=== PATIENT | male | born 1955 | race Caucasian/White ===

== ENCOUNTER 2017-01-04 15:46 | Observation (INO) | payer OTHER ==
[2017-01-04] VITALS (8 sets, daily range): BP systolic 105–141; BP diastolic 69–79; PULSE 61–68; RESP 18–20; TEMP 88.2–98.8; O2SAT 95–98
[~2017-01-04] VITALS: Ht 193 cm; Wt 90.0 kg
[~2017-01-04 15:46] MED LIST: ASPI325T PO; METO25 PO; [UNRECOGNIZED DRUG - CODE]
--- NOTE | 2017-01-04 17:20 | PD ---
HPI Chief Complaint: Cardiac Complaint Time Seen by Provider: 17:20 Travel History International Travel<30 days: No Contact w/Intl Traveler<30days: No Traveled to known affect area: No History of Present Illness HPI 61 year old male presents to the emergency department for evaluation of palpitations that started around noon today, but have resolved. The patient states he has a history of atrial fibrillation. He states that he does get atrial fibrillation with similar symptoms. This occurs approximately once monthly. His student support advisor is Dr. Fletcher. Dr. Fletcher has told him to take an extra metoprolol when his symptoms occur. He did take an additional metoprolol and the symptoms resolved. Patient states that during this episode, he was having intermittent blurry vision. He states it was looking through a steamed glass, but then the blurry vision would resolve. He denies any headache. No current blurry vision. He states that that is coming to the emergency department for evaluation, to be extra careful. The patient states that he has no symptoms at this point. Patient had no chest pain during symptoms and no chest pain now. He has no abdominal pain. No nausea, vomiting , diarrhea. He states he takes metoprolol and aspirin daily. He denies any other medical problems. Patient states he feels well at this time. PFSH Past Medical History Arthritis: No Asthma: No Atrial Fibrillation: Yes Autoimmune Disease: No Blood Disorders: No Anxiety: No Depression: No Heart Rhythm Problems: Yes Cancer: No Cardiovascular Problems: Yes (AFIB) High Cholesterol: No Chemotherapy: No Chest Pain: No Congestive Heart Failure: No COPD: No Cerebrovascular Accident: No Diabetes: No Diminished Hearing: No Endocrine: No GERD: Yes Glaucoma: No Genitourinary: No Headaches: No Hepatitis: No Hiatal Hernia: No Hypertension: Yes Immune Disorder: No Kidney Stones: No Musculoskeletal: Yes Neurologic: No Psychiatric: No Reproductive: No Respiratory: No Immunizations Current: Yes Myocardial Infarction: No Radiation Therapy: No Renal Failure: No Seizures: No Sickle Cell Disease: No Sleep Apnea: No Thyroid Disease: No Ulcer: No Tetanus Vaccination: Unknown Influenza Vaccination: Yes Past Surgical History Abdominal Surgery: No AICD: No Arteriovenous Shunt: No Cardiac Surgery: No Ear Surgery: No Endocrine Surgery: No Eye Surgery: No Genitourinary Surgery: No Gynecologic Surgery: No Insulin Pump: No Joint Replacement: No Oral Surgery: No Pacemaker: No Thoracic Surgery: No Social History Alcohol Use: No Tobacco Use: No Substance Use: No Allergies-Medications (Allergen,Severity, Reaction): Coded Allergies: No Known Allergies (Verified , 01/04/17) Reported Meds & Prescriptions Reported Meds & Active Scripts Active Knee Brace (Elastic Bandages & Supports) Medium Mis Units Metoprolol Tartrate 25 mg (Metoprolol Tartrate) 25 Mg Tab 25 Mg PO BID Reported Aspirin 325 mg (Aspirin) 325 Mg Tab 325 Mg PO DAILY Review of Systems Except as stated in HPI: all other systems reviewed are Neg Physical Exam Narrative GENERAL: Well-nourished, well-developed male patient, ambulatory. Afebrile. SKIN: Focused skin assessment warm/dry. HEAD: Normocephalic. Atraumatic. EYES: No scleral icterus. No injection or drainage. NECK: Supple, trachea midline. No JVD or lymphadenopathy. CARDIOVASCULAR: Regular rate and rhythm without murmurs, gallops, or rubs. Bilateral radial and pedal pulses 2+. RESPIRATORY: Breath sounds equal bilaterally. No accessory muscle use. Lungs sounds are clear to auscultation. GASTROINTESTINAL: Abdomen soft, non-tender, nondistended. MUSCULOSKELETAL: No cyanosis, or edema. BACK: Nontender without obvious deformity. No CVA tenderness. Data Data Last Documented VS Vital Signs Date Time Temp Pulse Resp B/P Pulse Ox O2 Delivery O2 Flow Rate FiO2 01/04/17 18:49 97.6 01/04/17 17:27 98 Room Air 01/04/17 17:14 62 18 01/04/17 17:14 136/73 Orders Electrocardiogram (01/04/17 ) Basic Metabolic Panel (Bmp) (01/04/17 17:18) Ckmb (Isoenzyme) Profile (01/04/17 17:18) Complete Blood Count With Diff (01/04/17 17:18) Magnesium (Mg) (01/04/17 17:18) Troponin I (01/04/17 17:18) Ecg Monitoring (01/04/17 17:18) Bilateral Bp Monitoring (01/04/17 17:18) Iv Access Insert/Monitor (01/04/17 17:18) Oximetry (01/04/17 17:18) Oxygen Administration (01/04/17 17:18) Sodium Chloride 0.9% Flush (Ns Flush) (01/04/17 17:30) CKMB (01/04/17 17:15) CKMB% (01/04/17 17:15) Ct Brain W/O Iv Contrast(Rout) (01/04/17 ) Admit Order (Ed Use Only) (01/04/17 19:19) Labs Laboratory Tests Test 01/04/17 17:15 White Blood Count 7.6 TH/MM3 Red Blood Count 4.74 MIL/MM3 Hemoglobin 13.5 GM/DL Hematocrit 40.9 % Mean Corpuscular Volume 86.4 FL Mean Corpuscular Hemoglobin 28.5 PG Mean Corpuscular Hemoglobin 33.0 % Concent Red Cell Distribution Width 14.4 % Platelet Count 276 TH/MM3 Mean Platelet Volume 7.4 FL Neutrophils (%) (Auto) 75.9 % Lymphocytes (%) (Auto) 16.4 % Monocytes (%) (Auto) 6.1 % Eosinophils (%) (Auto) 1.1 % Basophils (%) (Auto) 0.5 % Neutrophils # (Auto) 5.8 TH/MM3 Lymphocytes # (Auto) 1.2 TH/MM3 Monocytes # (Auto) 0.5 TH/MM3 Eosinophils # (Auto) 0.1 TH/MM3 Basophils # (Auto) 0.0 TH/MM3 CBC Comment DIFF FINAL Differential Comment Sodium Level 141 MEQ/L Potassium Level 4.3 MEQ/L Chloride Level 106 MEQ/L Carbon Dioxide Level 29.3 MEQ/L Anion Gap 6 MEQ/L Blood Urea Nitrogen 19 MG/DL Creatinine 1.12 MG/DL Estimat Glomerular Filtration 66 ML/MIN Rate Random Glucose 116 MG/DL Calcium Level 9.3 MG/DL Magnesium Level 2.2 MG/DL Total Creatine Kinase 234 U/L Creatine Kinase MB 3.0 NG/ML Troponin I LESS THAN 0.02 NG/ML MDM Medical Decision Making Medical Screen Exam Complete: Yes Emergency Medical Condition: Yes Medical Record Reviewed: Yes Interpretation(s) CT brain - CONCLUSION: No acute disease. Differential Diagnosis TIA versus CVA versus Atrial fibrillation versus palpitations versus ACS Narrative Course 61-year-old male presents to the emergency department for evaluation of palpitations that occurred at noon, but have currently resolved. He took an extra metoprolol as directed by his student support advisor. Patient reports symptoms approximately monthly since September. The patient denies any complaints at this time and states he feels well. EKG shows sinus rhythm, heart rate 76. He does have inverted T waves in V2 and V3. EKG is unchanged when compared to previous EKG. No acute ST changes. CBC, BMP, magnesium, CK, troponin are ordered and pending. CT of the brain is ordered and pending per CBC shows no acute abnormality. BMP shows no acute abnormality. CK is 234. Troponin is less than 0.02. Magnesium 2.2. CT of the brain shows no acute disease. I consulted my attending physician, Dr. Schultz, who also examined the patient. She like the patient to be admitted for 23 hour observation for possible TIA. Dr. Preciado accepted admission. I was later notified that the patient would need to be admitted to the residents due to being seen in the [facility]. Dr. Romero accepted admission. Diagnosis Primary Impression: TIA (transient ischemic attack) Qualified Code: G45.9 - Transient cerebral ischemia, unspecified type Additional Impression: Atrial fibrillation Qualified Code: I48.0 - Paroxysmal atrial fibrillation Admitting Information Admitting Physician Requests: Observation Kasia Mishra Jan 04, 2017 17:20
[2017-01-04] MEDS ORDERED: SODIUM CHLORIDE 0.9% FLUSH 10 ML FLUSH IVF PRN (17:30)
[2017-01-04 17:35] LABS: AUTOMATED NEUTROPHIL # 5.8 TH/MM3 (1.8-7.7); BASOPHIL % 0.5 % (0.0-2.0); EOSINOPHIL # 0.1 TH/MM3 (0-0.4); EOSINOPHIL % 1.1 % (0.0-4.0); HEMATOCRIT 40.9 % (39.0-51.0); HEMO FLAGS DIFF FINAL; LYMPH % 16.4 % (9.0-44.0); LYMPHOCYTE # 1.2 TH/MM3 (1.0-4.8); MEAN CELL VOLUME 86.4 FL (80.0-100.0); MEAN CORPUSCULAR HEMOGLOBIN 28.5 PG (27.0-34.0); MONO % 6.1 % (0.0-8.0); NEUT % 75.9 % (16.0-70.0); PLATELET COUNT 276 TH/MM3 (150-450); RED BLOOD COUNT 4.74 MIL/MM3 (4.50-5.90); RED CELL DISTRIBUTION WIDTH 14.4 % (11.6-17.2); WHITE BLOOD COUNT 7.6 TH/MM3 (4.0-11.0)
[2017-01-04 17:49] LABS: ANION GAP 6 MEQ/L (5-15); BICARBONATE 29.3 MEQ/L (21.0-32.0); BLOOD UREA NITROGEN 19 MG/DL (7-18); CHLORIDE 106 MEQ/L (98-107); GLOMERULAR FILTRATION RATE 66 ML/MIN (>89); MAGNESIUM 2.2 MG/DL (1.5-2.5); POTASSIUM 4.3 MEQ/L (3.5-5.1); SODIUM (NA) 141 MEQ/L (136-145)
[2017-01-04 17:54] LABS: CREATINE KINASE 234 U/L (39-308)
--- NOTE | 2017-01-04 19:14 | RADRPT ---
EXAM DATE/TIME: 01/04/2017 19:02 [facility] COMPARISON: No previous studies available for comparison. INDICATIONS : Blurry vision with a-fib. RADIATION DOSE: 40.04 CTDIvol (mGy) MEDICAL HISTORY : Cardiovascular disease. Hypertension - Patient denies. SURGICAL HISTORY : None. ENCOUNTER: Initial ACUITY: 1 day PAIN SCALE: 0/10 LOCATION: cranial TECHNIQUE: Multiple contiguous axial images were obtained of the head. Using automated exposure control and adj ustment of the mA and/or kV according to patient size, radiation dose was kept as low as reasonably a chievable to obtain optimal diagnostic quality images. FINDINGS: CEREBRUM: The ventricles are normal for age. No evidence of midline shift, mass lesion, hemorrhage or acute in farction. No extra-axial fluid collections are seen. POSTERIOR FOSSA: The cerebellum and brainstem are intact. The 4th ventricle is midline. The cerebellopontine angle i s unremarkable. EXTRACRANIAL: The visualized portion of the orbits is intact. SKULL: The calvaria is intact. No evidence of skull fracture. CONCLUSION: No acute disease. Braydon Montes MD on January 04, 2017 at 19:12 Board Certified Radiologist. This report was verified electronically.
--- NOTE | 2017-01-04 19:24 | PD ---
Physical Exam Date Seen by Provider: Jan 04, 2017 Time Seen by Provider: 19:21 Narrative 61-year-old male came to the emergency room with history of paroxysmal atrial fibrillation which as per the patient he has had it for past 10 years. 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 However associated with the palpitations he also started to get blurry vision. The blurry vision lasted for few minutes. The palpitations started to subside considerably and the blurry vision started to subside as well. However he was concerned from stroke perspective and wanted to come to the emergency room and be checked out. Patient was seen by the nurse practitioner and I am supervising her. Currently patient is in normal sinus rhythm. He is only on one baby aspirin every day. Blood work that was ordered came back to be within normal limits. I spoke with the patient and expressed to him my concerns for possible TIA. He understood and a CAT scan was ordered. I also expressed to him the need to be admitted for observation because of the paroxysmal atrial fibrillation and the possibility of embolic event. Patient has understood and is willing to stay. Data Data Last Documented VS Vital Signs Date Time Temp Pulse Resp B/P Pulse Ox O2 Delivery O2 Flow Rate FiO2 01/04/17 18:49 97.6 01/04/17 17:27 98 Room Air 01/04/17 17:14 62 18 01/04/17 17:14 136/73 Orders Electrocardiogram (01/04/17 ) Basic Metabolic Panel (Bmp) (01/04/17 17:18) Ckmb (Isoenzyme) Profile (01/04/17 17:18) Complete Blood Count With Diff (01/04/17 17:18) Magnesium (Mg) (01/04/17 17:18) Troponin I (01/04/17 17:18) Ecg Monitoring (01/04/17 17:18) Bilateral Bp Monitoring (01/04/17 17:18) Iv Access Insert/Monitor (01/04/17 17:18) Oximetry (01/04/17 17:18) Oxygen Administration (01/04/17 17:18) Sodium Chloride 0.9% Flush (Ns Flush) (01/04/17 17:30) CKMB (01/04/17 17:15) CKMB% (01/04/17 17:15) Ct Brain W/O Iv Contrast(Rout) (01/04/17 ) Admit Order (Ed Use Only) (01/04/17 19:19) Labs Laboratory Tests Test 01/04/17 17:15 White Blood Count 7.6 TH/MM3 Red Blood Count 4.74 MIL/MM3 Hemoglobin 13.5 GM/DL Hematocrit 40.9 % Mean Corpuscular Volume 86.4 FL Mean Corpuscular Hemoglobin 28.5 PG Mean Corpuscular Hemoglobin 33.0 % Concent Red Cell Distribution Width 14.4 % Platelet Count 276 TH/MM3 Mean Platelet Volume 7.4 FL Neutrophils (%) (Auto) 75.9 % Lymphocytes (%) (Auto) 16.4 % Monocytes (%) (Auto) 6.1 % Eosinophils (%) (Auto) 1.1 % Basophils (%) (Auto) 0.5 % Neutrophils # (Auto) 5.8 TH/MM3 Lymphocytes # (Auto) 1.2 TH/MM3 Monocytes # (Auto) 0.5 TH/MM3 Eosinophils # (Auto) 0.1 TH/MM3 Basophils # (Auto) 0.0 TH/MM3 CBC Comment DIFF FINAL Differential Comment Sodium Level 141 MEQ/L Potassium Level 4.3 MEQ/L Chloride Level 106 MEQ/L Carbon Dioxide Level 29.3 MEQ/L Anion Gap 6 MEQ/L Blood Urea Nitrogen 19 MG/DL Creatinine 1.12 MG/DL Estimat Glomerular Filtration 66 ML/MIN Rate Random Glucose 116 MG/DL Hemoglobin A1c 6.1 % Calcium Level 9.3 MG/DL Magnesium Level 2.2 MG/DL Total Creatine Kinase 234 U/L Creatine Kinase MB 3.0 NG/ML Troponin I LESS THAN 0.02 NG/ML [facility] Medical Record Reviewed: Yes Supervised Visit with ANGELITA: Yes Diagnosis Primary Impression: TIA (transient ischemic attack) Qualified Code: G45.9 - Transient cerebral ischemia, unspecified type Additional Impression: Atrial fibrillation Qualified Code: I48.0 - Paroxysmal atrial fibrillation Scripts Apixaban (Eliquis)5 Mg Tab5 Mg PO BID #60 TAB Ref 0 Prov:Melvin Wyman MD R3 01/05/17 Atorvastatin (Lipitor)20 Mg Tab40 Mg PO HS #30 TAB Prov:Melvin Wyman MD R3 01/05/17 Chang Schultz MD Jan 04, 2017 19:24
[2017-01-04] MEDS ORDERED: SODIUM CHLORIDE 0.9% FLUSH 10 ML FLUSH IV FLUSH PRN (19:30)
[2017-01-04] MEDS ORDERED: NALOXONE HCL 0.4 MG/ML AMP IV PRN (19:30)
[2017-01-04] MEDS ORDERED: ACETAMINOPHEN 325 MG TAB PO PRN (20:00)
[2017-01-04] MEDS ORDERED: ENALAPRILAT 1.25 MG/ML VIAL IV PRN ×2 (20:00→22:00)
[2017-01-04] MEDS ORDERED: ONDANSETRON HCL 4 MG/2 ML VIAL IVP PRN (20:00)
[2017-01-04] MEDS ORDERED: MAGNESIUM HYDROXIDE SUSP 30 ML CUP PO PRN (20:00)
[2017-01-04] MEDS ORDERED: TEMAZEPAM 15 MG CAP PO PRN (20:00)
[2017-01-04] MEDS: ASPIRIN 325 MG TAB PO SCH (20:11)
--- NOTE | 2017-01-04 20:25 | RADRPT ---
EXAM DATE/TIME: 01/04/2017 19:44 [facility] COMPARISON: No previous studies available for comparison. INDICATIONS : Transient ischemic attack. MEDICAL HISTORY : Hypertension. Gastroesophageal reflux disease. Afib. Lower back pain. Anticoagulant therapy, Aspiri n. SURGICAL HISTORY : None. ENCOUNTER: Initial ACUITY: 1 day PAIN SCORE: 0/10 LOCATION: Bilateral neck PEAK SYSTOLIC VELOCITIES (cm/sec): ICA/CCA RATIO: Right: 0.9 Left: 0.9 ICA: Right: 78 Left: 88 CCA: Right: 89 Left: 97 ECA: Right: 74 Left: 67 VERTEBRAL: Right: 51 antegrade Left: 52 antegrade Elevated flow velocities and ICA/CCA ratios have been found to correlate with increased degrees of vessel stenosis, calculated as percentage of diameter relative to a normal segment of distal ICA/CCA FINDINGS: RIGHT CAROTID: No significant stenosis is visualized. The waveforms are within normal limits. LEFT CAROTID: No significant stenosis is visualized. The waveforms are within normal limits. VERTEBRAL ARTERIES: Antegrade flow is seen in both vertebral arteries. MISCELLANEOUS: None. CONCLUSION: No acute disease. Braydon Montes MD on January 04, 2017 at 20:23 Board Certified Radiologist. This report was verified electronically.
--- NOTE | 2017-01-04 20:27 | RADRPT ---
EXAM DATE/TIME: 01/04/2017 19:36 [facility] COMPARISON: No previous studies available for comparison. INDICATIONS : Cough. MEDICAL HISTORY : None. SURGICAL HISTORY : None. ENCOUNTER: Initial ACUITY: 1 day PAIN SCORE: 0/10 LOCATION: Bilateral chest FINDINGS: Discoid atelectasis is noted within the left lung base. The heart is normal. The pulmonary vascular pattern is normal. The right lung is clear. CONCLUSION: Discoid atelectasis within the left lung base. Braydon Montes MD on January 04, 2017 at 20:21 Board Certified Radiologist. This report was verified electronically.
--- NOTE | 2017-01-04 20:30 | HHI.HP ---
HPI Service Family Medicine Primary Care Physician No Primary Care Physician Admission Diagnosis TIA, atrial fibrillation Diagnoses: International Travel<30 Days: No Contact w/Intl Traveler<30days: No Known Affected Area: No History of Present Illness Patient is a 61yo male with a PMH significant for PAF. Presented to the ED due to onset of blurry vision. Patient has a history of PAF that use that occur 3-4x /yr but has increased to monthly since 09/2016. Episodes are typically treated by taking metoprolol 50mg at the time of the episode and then resting for the next 3-4hrs as the symptoms will then resolve spontaneously. However, this last episode occurred at 1330 today but was now associated with blurry vision which was new. The blurry vision would come and go with each episode lasting 15secs. Occurred 3-4times. No associated syncope or lightheadedness. Denies CP or SOB. Pt has otherwise been asymptomatic prior to this event. Review of Systems Other ROS negative x10 except per HPI. Past Family Social History Past Medical History Paroxysmal atrial fibrillation (2007) Bilateral knee osteoarthritis Past Surgical History Appendectomy (2014) Reported Medications Reported Meds & Active Scripts Active Knee Brace (Elastic Bandages & Supports) Medium Mis Units Metoprolol Tartrate 25 mg (Metoprolol Tartrate) 25 Mg Tab 25 Mg PO BID Reported Aspirin 325 mg (Aspirin) 325 Mg Tab 325 Mg PO DAILY Allergies: Coded Allergies: No Known Allergies (Verified , 01/04/17) Family History Father: from fall at age 87, atrial fibrillation Paternal aunt: atrial fibrillation Mother: from MVC at age 36 Social History Lives at home with Tobacco: none, 1 PPD x 40 years, quit 2014 Alcohol: none Illicit drug use: none Physical Exam Vital Signs Vital Signs Date Time Temp Pulse Resp B/P Pulse Ox O2 Delivery O2 Flow Rate FiO2 01/04/17 19:28 138/71 141/70 01/04/17 19:27 65 18 138/71 97 Room Air 01/04/17 18:49 97.6 01/04/17 17:27 98 Room Air 01/04/17 17:14 62 18 98 Room Air 01/04/17 17:14 68 18 136/73 98 Room Air Physical Exam GENERAL: This is a well-nourished, well-developed patient, in no apparent distress. SKIN: No rashes, ecchymoses or lesions. Cool and dry. EYES: Pupils equal round and reactive. Extraocular motions intact. No scleral icterus. No injection or drainage. ENT: Nose without bleeding, purulent drainage. Throat without erythema, tonsillar hypertrophy or exudate. Uvula midline. Airway patent. NECK: Trachea midline. No lymphadenopathy. Supple, nontender, no meningeal signs. CARDIOVASCULAR: Regular rate and rhythm without murmurs, gallops, or rubs. RESPIRATORY: Clear to auscultation. Breath sounds equal bilaterally. No wheezes , rales, or rhonchi. GASTROINTESTINAL: Abdomen soft, non-tender, nondistended. No hepato-splenomegaly , or palpable masses. No guarding. MUSCULOSKELETAL: Extremities without clubbing, cyanosis, or edema. No calf tenderness. NEUROLOGICAL: Awake and alert. Cranial nerves II through XII intact. dysdiadochokinesia and pronator drift negative. Motor and sensory grossly within normal limits. Five out of 5 muscle strength in all muscle groups. Normal speech. Laboratory Laboratory Tests Test 01/04/17 17:15 White Blood Count 7.6 Red Blood Count 4.74 Hemoglobin 13.5 Hematocrit 40.9 Mean Corpuscular Volume 86.4 Mean Corpuscular Hemoglobin 28.5 Mean Corpuscular Hemoglobin 33.0 Concent Red Cell Distribution Width 14.4 Platelet Count 276 Mean Platelet Volume 7.4 Neutrophils (%) (Auto) 75.9 Lymphocytes (%) (Auto) 16.4 Monocytes (%) (Auto) 6.1 Eosinophils (%) (Auto) 1.1 Basophils (%) (Auto) 0.5 Neutrophils # (Auto) 5.8 Lymphocytes # (Auto) 1.2 Monocytes # (Auto) 0.5 Eosinophils # (Auto) 0.1 Basophils # (Auto) 0.0 CBC Comment DIFF FINAL Differential Comment Sodium Level 141 Potassium Level 4.3 Chloride Level 106 Carbon Dioxide Level 29.3 Anion Gap 6 Blood Urea Nitrogen 19 Creatinine 1.12 Estimat Glomerular Filtration 66 Rate Random Glucose 116 Calcium Level 9.3 Magnesium Level 2.2 Total Creatine Kinase 234 Creatine Kinase MB 3.0 Troponin I LESS THAN 0.02 Result Diagram: 01/04/17 1715 01/04/17 1715 Imaging Last Impressions Head CT 01/04/17 0000 Signed Impressions: Service Date/Time: Wednesday, January 04, 2017 19:02 - CONCLUSION: No acute disease. Braydon Montes MD Carotid Artery Ultrasound 01/04/17 0000 Signed Impressions: Service Date/Time: Wednesday, January 04, 2017 19:44 - CONCLUSION: No acute disease. Braydon Montes MD Assessment and Plan Assessment and Plan Patient is a 61yo male with a PMH significant for PAF. Admitted for TIA evaluation. Code Status FULL Discussed Condition With Dr. Robledo Problem List: (1) TIA (transient ischemic attack) Status: Acute Plan: Symptoms of blurred vision that occurred 3-4 times with each episode lasting for 15secs. Associated with episode of PAF but this is atypical for patient. No other associated symptoms. Pt is at increased risk due to history of Afib however he has no other major comorbidities. No focal deficits on exam. -EKG and troponin negative x1. No indication to continue trending -[id number]: 2, oral anticoagulation recommended. * Will need to discuss options with patient tomorrow -neuro checks -Lipid panel and A1c ordered Imaging: * Head CT: negative * Carotid US: negative * MRI ordered * MRA ordered * CXR: negative Medications: * Aspirin 325mg daily * Atorvastatin 40mg daily (2) PAF (paroxysmal atrial fibrillation) Status: Acute Plan: EKG shows sinus rhythm with evidence of 1st degree AV block and non specific T wave inversions in anterior lateral leads. -Currently rate controlled -cardiac telemetry -echo ordered -continue home medication: metoprolol 25mg BID -would benefit from anticoagulation (3) Nutrition, metabolism, and development symptoms Status: Acute Plan: Diet: Heart Healthy Electrolytes: unremarkable Fluids: none DVT PPX: lovenox GI PPX: none indicated Problem Qualifiers (1) TIA (transient ischemic attack): Qualified Code: G45.9 - Transient cerebral ischemia, unspecified type Tiffanie Mayes MD R2 Jan 04, 2017 20:30
[2017-01-04] MEDS ORDERED: METO25TA3 PO (20:37)
[2017-01-04] MEDS ORDERED: ASPI325T PO (20:37)
[2017-01-04] MEDS: METOPROLOL TARTRATE 25 MG TAB PO SCH (21:00)
[2017-01-04] MEDS: SODIUM CHLORIDE 0.9% FLUSH 10 ML FLUSH IV FLUSH SCH (21:04)
[2017-01-04] MEDS ORDERED: ENOXAPARIN SODIUM 40 MG/0.4 ML SYRINGE SQ SCH (22:00)
[2017-01-04 22:27] LABS: HEMOGLOBIN A1a 1.1 %; HEMOGLOBIN A1b 1.7 %; HEMOGLOBIN Ao 84.4 %; HEMOGLOBIN LA1C 2.2 %; HEMOGLOBIN P3 4.1 %
--- NOTE | 2017-01-04 22:38 | RADRPT ---
EXAM DATE/TIME: 01/04/2017 21:37 [facility] COMPARISON: CT BRAIN W/O CONTRAST, January 04, 2017, 19:02. INDICATIONS : TIA. MEDICAL HISTORY : A-fib. SURGICAL HISTORY : Appendectomy. ENCOUNTER: Subsequent ACUITY: 1 day PAIN SCORE: 0/10 LOCATION: cranial Please note a normal MRA of the brain does not entirely exclude the possibility of a small aneurysm, nor the possibility of distal intracranial vessel disease. TECHNIQUE: 3D time of flight MRA was performed. Source images, multiplanar STS MIP, and 3D volume MIP reconstru ctions were reviewed. FINDINGS: There is excellent visualization of the major intracranial arteries out to the second-order branch ve ssels. There is no evidence for aneurysm, vessel truncation or stenosis, and no evidence for vascula r malformation. CONCLUSION: No acute disease. Braydon Montes MD on January 04, 2017 at 22:36 Board Certified Radiologist. This report was verified electronically.
--- NOTE | 2017-01-04 22:41 | RADRPT ---
EXAM DATE/TIME: 01/04/2017 21:37 [facility] COMPARISON: No previous studies available for comparison. INDICATIONS : TIA. MEDICAL HISTORY : A-fib. SURGICAL HISTORY : Appendectomy. ENCOUNTER: Subsequent ACUITY: 1 day PAIN SCORE: 0/10 LOCATION: cranial TECHNIQUE: Multiplanar, multisequence MRI of the brain was performed without contrast. FINDINGS: CEREBRUM: The ventricles are normal for age. No evidence of midline shift, mass lesion, hemorrhage or acute in farction. No extraaxial fluid collections are seen. The pituitary gland and suprasellar cistern are normal in configuration. WHITE MATTER: No significant signal abnormalities are seen in the white matter. POSTERIOR FOSSA: The cerebellum and brainstem are intact. The 4th ventricle is midline. The cerebellopontine angle is unremarkable. The cerebellar tonsils are normal in position. DIFFUSION IMAGING: No focal areas of restricted diffusion are seen. No evidence of acute infarction. EXTRACRANIAL: The visualized portions of the orbits and paranasal sinuses are unremarkable. CONCLUSION: No acute disease. Braydon Montes MD on January 04, 2017 at 22:38 Board Certified Radiologist. This report was verified electronically.
[2017-01-05 04:12] VITALS: BP 100/54; PULSE 53; RESP 20; TEMP 97.6; O2SAT 96
[2017-01-05 06:39] LABS: ANION GAP 8 MEQ/L (5-15); BICARBONATE 26.3 MEQ/L (21.0-32.0); BLOOD UREA NITROGEN 19 MG/DL (7-18); CHLORIDE 108 MEQ/L (98-107); GLOMERULAR FILTRATION RATE 80 ML/MIN (>89); POTASSIUM 3.8 MEQ/L (3.5-5.1); SODIUM (NA) 142 MEQ/L (136-145)
[2017-01-05 06:41] LABS: HDL CHOLESTEROL 37.1 MG/DL (40.0-60.0); LDL CHOLESTEROL 120 MG/DL (0-99)
[2017-01-05 06:50] LABS: AUTOMATED NEUTROPHIL # 4.7 TH/MM3 (1.8-7.7); BASOPHIL % 0.3 % (0.0-2.0); EOSINOPHIL # 0.2 TH/MM3 (0-0.4); EOSINOPHIL % 2.1 % (0.0-4.0); HEMATOCRIT 37.2 % (39.0-51.0); HEMO FLAGS DIFF FINAL; LYMPH % 25.8 % (9.0-44.0); LYMPHOCYTE # 1.9 TH/MM3 (1.0-4.8); MEAN CELL VOLUME 85.9 FL (80.0-100.0); MEAN CORPUSCULAR HEMOGLOBIN 28.4 PG (27.0-34.0); MEAN CORPUSCULAR HGB CONC 33.1 % (32.0-36.0); MONO % 8.2 % (0.0-8.0); NEUT % 63.6 % (16.0-70.0); PLATELET COUNT 233 TH/MM3 (150-450); RED BLOOD COUNT 4.33 MIL/MM3 (4.50-5.90); RED CELL DISTRIBUTION WIDTH 14.6 % (11.6-17.2); WHITE BLOOD COUNT 7.4 TH/MM3 (4.0-11.0)
[2017-01-05 07:31] VITALS: BP 120/69; PULSE 60; RESP 18; TEMP 97.5; O2SAT 95
[2017-01-05] MEDS: ASPIRIN 325 MG TAB PO SCH (07:40)
[2017-01-05] MEDS: METOPROLOL TARTRATE 25 MG TAB PO SCH (07:41)
[2017-01-05] MEDS: SODIUM CHLORIDE 0.9% FLUSH 10 ML FLUSH IV FLUSH SCH (07:42)
[2017-01-05 10:29] LABS: ALT (GPT) 20 U/L (12-78); AST (GOT) 13 U/L (15-37)
[2017-01-05 10:31] LABS: ALKALINE PHOSPHATASE 62 U/L (45-117); TOTAL BILIRUBIN ADULT 0.3 MG/DL (0.2-1.0)
[2017-01-05] MEDS ORDERED: LIPI20TA PO (11:18)
[2017-01-05] MEDS ORDERED: APIX5TAB PO ×2 (11:18→18:03)
--- NOTE | 2017-01-05 11:19 | HHI.DCPOC ---
Discharge Care Plan Diagnosis: (1) TIA (transient ischemic attack) (2) PAF (paroxysmal atrial fibrillation) Goals to Promote Your Health * To prevent worsening of your condition and complications * To maintain your health at the optimal level Directions to Meet Your Goals Take your medications as prescribed Follow your dietary instruction Follow activity as directed Keep your appointments as scheduled Take your immunizations and boosters as scheduled If your symptoms worsen call your PCP, if no PCP go to Urgent Care Center or Emergency Room Smoking is Dangerous to Your Health. Avoid second hand smoke Call the 24-hour hour crisis hotline for domestic abuse at Melvin Wyman MD R3 Jan 05, 2017 11:19
[2017-01-05 11:34] VITALS: BP 120/77; PULSE 56; RESP 20; TEMP 97.8; O2SAT 96
--- NOTE | 2017-01-05 12:16 | HHI.HP ---
HPI Service Family Medicine Primary Care Physician No Primary Care Physician Admission Diagnosis TIA, atrial fibrillation Diagnoses: (1) TIA (transient ischemic attack) Diagnosis: Principal (2) PAF (paroxysmal atrial fibrillation) Diagnosis: Principal (3) Nutrition, metabolism, and development symptoms Diagnosis: Principal International Travel<30 Days: No Contact w/Intl Traveler<30days: No Known Affected Area: No History of Present Illness Mr Jackson is a 61yo male with a PMH significant for PAF. Presented to the ED due to onset of blurry vision. Patient has a history of PAF that use that occur 3-4x/yr but has increased to monthly since 09/2016. Episodes are typically treated by taking metoprolol 50mg at the time of the episode and then resting for the next 3-4hrs as the symptoms will then resolve spontaneously. However, this last episode occurred at 1330 on the day of admission but was now associated with blurry vision which was new. The blurry vision would come and go with each episode lasting 15secs. Occurred 3-4times. No associated syncope or lightheadedness. Denies CP or SOB. Pt has otherwise been asymptomatic prior to this event. He has done well overnight and feels well this am. He agrees to start on a statin and novel anticoagulant as he realizes that a TIA can portend a CVA. He understands the importance of prevention and will follow up with his [facility] as an outpt. Review of Systems Other ROS negative x10 except per HPI. Past Family Social History Past Medical History Paroxysmal atrial fibrillation (2007) Bilateral knee osteoarthritis Past Surgical History Appendectomy (2014) Allergies: Coded Allergies: No Known Allergies (Verified , 01/04/17) Family History Father: from fall at age 87, atrial fibrillation Paternal aunt: atrial fibrillation Mother: from MVC at age 36 Social History Lives at home with Tobacco: none, 1 PPD x 40 years, quit 2014 Alcohol: none Illicit drug use: none Physical Exam Vital Signs Vital Signs Date Time Temp Pulse Resp B/P Pulse Ox O2 Delivery O2 Flow Rate FiO2 01/05/17 11:34 97.8 56 20 120/77 96 01/05/17 07:31 97.5 60 18 120/69 95 01/05/17 04:12 97.6 53 20 100/54 96 01/04/17 23:00 61 01/04/17 22:44 98.8 62 20 105/69 95 01/04/17 21:33 88.2 65 18 134/79 97 01/04/17 19:28 138/71 141/70 01/04/17 19:27 65 18 138/71 97 Room Air 01/04/17 18:49 97.6 01/04/17 17:27 98 Room Air 01/04/17 17:14 62 18 98 Room Air 01/04/17 17:14 68 18 136/73 98 Room Air Physical Exam GENERAL: This is a well-nourished, well-developed patient, in no apparent distress. He is well informed about his condition and asymptomatic today. SKIN: No rashes, ecchymoses or lesions. Cool and dry. EYES: Pupils equal round and reactive. Extraocular motions intact. No scleral icterus. No injection or drainage. ENT: Nose without bleeding, purulent drainage. . Airway patent. NECK: Trachea midline. No lymphadenopathy. Supple, nontender, no meningeal signs. CARDIOVASCULAR: Regular rate and rhythm without murmurs, gallops, or rubs. RESPIRATORY: Clear to auscultation. Breath sounds equal bilaterally. No wheezes , rales, or rhonchi. GASTROINTESTINAL: Abdomen soft, non-tender, nondistended. No hepato-splenomegaly , or palpable masses. No guarding. MUSCULOSKELETAL: Extremities without clubbing, cyanosis, or edema. No calf tenderness. NEUROLOGICAL: Awake and alert. Cranial nerves II through XII intact. dysdiadochokinesia and pronator drift negative. Motor and sensory grossly within normal limits. Five out of 5 muscle strength in all muscle groups. Normal speech. Laboratory Laboratory Tests Test 01/04/17 01/05/17 17:15 05:08 White Blood Count 7.6 7.4 Red Blood Count 4.74 4.33 Hemoglobin 13.5 12.3 Hematocrit 40.9 37.2 Mean Corpuscular Volume 86.4 85.9 Mean Corpuscular Hemoglobin 28.5 28.4 Mean Corpuscular Hemoglobin 33.0 33.1 Concent Red Cell Distribution Width 14.4 14.6 Platelet Count 276 233 Mean Platelet Volume 7.4 7.6 Neutrophils (%) (Auto) 75.9 63.6 Lymphocytes (%) (Auto) 16.4 25.8 Monocytes (%) (Auto) 6.1 8.2 Eosinophils (%) (Auto) 1.1 2.1 Basophils (%) (Auto) 0.5 0.3 Neutrophils # (Auto) 5.8 4.7 Lymphocytes # (Auto) 1.2 1.9 Monocytes # (Auto) 0.5 0.6 Eosinophils # (Auto) 0.1 0.2 Basophils # (Auto) 0.0 0.0 CBC Comment DIFF FINAL DIFF FINAL Differential Comment Sodium Level 141 142 Potassium Level 4.3 3.8 Chloride Level 106 108 Carbon Dioxide Level 29.3 26.3 Anion Gap 6 8 Blood Urea Nitrogen 19 19 Creatinine 1.12 0.95 Estimat Glomerular Filtration 66 80 Rate Random Glucose 116 88 Hemoglobin A1c 6.1 Calcium Level 9.3 8.9 Magnesium Level 2.2 Total Creatine Kinase 234 Creatine Kinase MB 3.0 Troponin I LESS THAN 0.02 Erythrocyte Sedimentation Rate 25 Total Bilirubin 0.3 Aspartate Amino Transf 13 (AST/SGOT) Alanine Aminotransferase 20 (ALT/SGPT) Alkaline Phosphatase 62 C-Reactive Protein 1.31 Total Protein 6.9 Albumin 3.4 Triglycerides Level 160 Cholesterol Level 189 LDL Cholesterol 120 HDL Cholesterol 37.1 Cholesterol/HDL Ratio 5.09 Result Diagram: 01/05/17 0508 01/05/17 0508 Imaging Last Impressions Head CT 01/04/17 0000 Signed Impressions: Service Date/Time: Wednesday, January 04, 2017 19:02 - CONCLUSION: No acute disease. Braydon Montes MD Carotid Artery Ultrasound 01/04/17 0000 Signed Impressions: Service Date/Time: Wednesday, January 04, 2017 19:44 - CONCLUSION: No acute disease. Braydon Montes MD Assessment and Plan Assessment and Plan Patient is a 61yo male with a PMH significant for PAF. Admitted for TIA evaluation. He is ready and eager to go home today and will follow up with Cardiology and will seek a primary care Dr as Dr Delgado is no longer with the residency program Problem List: (1) TIA (transient ischemic attack) Status: Acute Plan: Symptoms of blurred vision that occurred 3-4 times with each episode lasting for 15secs. Associated with episode of PAF but this is atypical for patient. No other associated symptoms. Pt is at increased risk due to history of Afib however he has no other major comorbidities. No focal deficits on exam. -EKG and troponin negative x1. No indication to continue trending -[id number]: 2, oral anticoagulation recommended. * he agrees to anticoagulation today. Dr Wyman is investigating his Insurance to be sure he has this and his statin covered and will call it into a Pharmacy plus written scripts -Lipid panel and A1c done Imaging: * Head CT: negative * Carotid US: negative * MRI done and no CVA * MRA fine * CXR: negative Medications: * Aspirin 325mg daily * Atorvastatin 40mg daily (2) PAF (paroxysmal atrial fibrillation) Status: Acute Plan: EKG shows sinus rhythm with evidence of 1st degree AV block and non specific T wave inversions in anterior lateral leads. -Currently rate controlled -cardiac telemetry -echo ordered -continue home medication: metoprolol 25mg BID -would benefit from anticoagulation and will be starting this (3) Nutrition, metabolism, and development symptoms Status: Acute Plan: Diet: Heart Healthy Electrolytes: unremarkable Fluids: none DVT PPX: lovenox GI PPX: none indicated Problem Qualifiers (1) TIA (transient ischemic attack): Qualified Code: G45.9 - Transient cerebral ischemia, unspecified type Katey Patricia MD Jan 05, 2017 12:16
--- NOTE | 2017-01-05 13:53 | EC ---
Study Study Date:01/05/2017 STUDY CONCLUSIONS SUMMARY LEFT VENTRICLE: The cavity size was normal. Wall thickness was normal. Systolic function was normal. The estimated ejection fraction was in the range of 55% to 60%. Wall motion was normal; there were no regional wall motion abnormalities. Doppler parameters are consistent with abnormal left ventricular relaxation (grade 1 diastolic dysfunction). If LV function is below 40, please consider prescribing an ACEI or ARB or document rationale for non-use. PROCEDURE DATA STUDY STATUS: Elective. Procedure: Transthoracic echocardiography. Image quality was good. Scanning was performed from the parasternal, apical, and subcostal acoustic windows. Study completion: The patient tolerated the procedure well. Transthoracic echocardiography. M-mode, complete 2D, complete spectral Doppler, and color Doppler. Patient status: Inpatient. CARDIAC ANATOMY LEFT VENTRICLE: The cavity size was normal. Wall thickness was normal. Systolic function was normal. The estimated ejection fraction was in the range of 55% to 60%. Wall motion was normal; there were no regional wall motion abnormalities. Doppler parameters are consistent with abnormal left ventricular relaxation (grade 1 diastolic dysfunction). AORTIC VALVE: Trileaflet; normal thickness leaflets. Doppler: Transvalvular velocity was within the normal range. There was no stenosis. No regurgitation. AORTA: Aortic root: The aortic root was normal in size. MITRAL VALVE: Structurally normal valve. Doppler: Transvalvular velocity was within the normal range. There was no evidence for stenosis. Trace to mild regurgitation. LEFT ATRIUM: The atrium was normal in size. RIGHT VENTRICLE: The cavity size was normal. Wall thickness was normal. Systolic pressure was within the normal range. PULMONIC VALVE: Doppler: Transvalvular velocity was within the normal range. There was no evidence for stenosis. No regurgitation. TRICUSPID VALVE: Structurally normal valve. Doppler: Transvalvular velocity was within the normal range. Trace to mild regurgitation. PULMONARY ARTERY: The main pulmonary artery was normal-sized. Systolic pressure was within the normal range. RIGHT ATRIUM: The atrium was normal in size. PERICARDIUM: There was no pericardial effusion. SYSTEMIC VEINS: Inferior vena cava: The vessel was normal in size. BASIC MEASUREMENTS ADULT NORMAL Left ventricle LV internal dimension, ED, chordal level, 45.8 mm 43-52 PLAX LV internal dimension, ES, chordal level, 33.9 mm 23-38 PLAX Fractional shortening, chordal level, PLAX *26 % >29 LV posterior wall thickness, ED 9.36 mm IVS/LVPW ratio, ED 1.26 <1.3 Ventricular septum Septal thickness, ED 11.8 mm Aortic valve Leaflet separation 21 mm 15-26 Right ventricle RV internal dimension, ED, PLAX 28.1 mm 19-38 BASIC MEASUREMENTS ADULT NORMAL Aortic valve Leaflet separation 21 mm 15-26 Aorta Root diameter, ED 32 mm 20-37 Left atrium Anterior-posterior dimension, ES 36 mm 19-40 LA/aortic root ratio 1.13 DOPPLER MEASUREMENTS ADULT NORMAL Main pulmonary artery Pressure, S 26 mm Hg =30 Tricuspid valve Regurgitant peak velocity 201 cm/s Peak RV-RA gradient, S 16 mm Hg Maximal regurgitant velocity 201 cm/s Systemic veins Estimated CVP 10 mm Hg Right ventricle RV pressure, S 26 mm Hg <30 LEGEND: Mean values are shown as u=mean value. Asterisk (*) kaufman values outside specified normal range. Prepared and signed by Devon Palma [id number]
[2017-01-05] MEDS ORDERED: ATORVASTATIN 20 MG TAB PO SCH (21:00)
--- NOTE | 2017-01-06 21:31 | EKG ---
Date Performed: 01/04/2017 Time Performed: 16:28:50 PTAGE: 61 years EKG: Sinus rhythm WITH FIRST DEGREE AV BLOCK ST DEVIATION AND MODERATE T-WAVE ABNORMALITY, CONSIDER ANTERIOR ISCHEMIA ABNORMAL ECG PREVIOUS TRACING : 01/04/2017 16.19 DOCTOR: Devon Palma Interpretating Date/Time 01/06/2017 21:28:00
== END 2017-01-05 15:06 | disposition home or self-care (01) ==
LOC: NEPC 15:46 → NEDA 19:21 → NEPFCDU 21:28
PROVIDERS: ADMIT Family Medicine; ATTEND Family Medicine
DX: G45.9 Transient cerebral ischemic attack, unspecified (principal); I48.0 Paroxysmal atrial fibrillation; M17.0 Bilateral primary osteoarthritis of knee; I10 Essential (primary) hypertension; Z79.82 Long term (current) use of aspirin
CPT/HCPCS: 70450; 70544; 70551; 71010; 80048; 80053; 80061; 82550; 82552; 83036; 83735; 84484; 85025; 85652; 86140; 93005; 93306; 93880; 97161; 99285; G0378; G8987; G8988; J1650

== ENCOUNTER 2017-11-29 00:29 | Emergency (ER) | payer OTHER ==
[~2017-11-29] VITALS: Ht 193 cm; Wt 85.0 kg
[~2017-11-29 00:29] MED LIST changes: +APIX5TAB PO; -ASPI325T PO; +LIPI20TA PO; -METO25 PO; +METO25TA3 PO; -[UNRECOGNIZED DRUG - CODE]
[2017-11-29 00:30] VITALS: BP 133/74; PULSE 97; RESP 16; TEMP 98.3; O2SAT 97
[2017-11-29] MEDS ORDERED: ASPI-183 PO (02:08)
[2017-11-29 02:17] VITALS: BP 121/72; PULSE 97; RESP 12; O2SAT 97
--- NOTE | 2017-11-29 03:06 | RADRPT ---
EXAM DATE/TIME: 11/29/2017 02:50 [facility] COMPARISON: CHEST SINGLE AP, January 04, 2017, 19:36. INDICATIONS : Cough, congestion, and shortness of breath. MEDICAL HISTORY : None. SURGICAL HISTORY : None. ENCOUNTER: Initial ACUITY: 3 days PAIN SCORE: 0/10 LOCATION: chest FINDINGS: Ill-defined patchy pneumonia seen in the right lower lobe. Left lung reasonably clear. No pleural eff usion. No pneumothorax. Normal, stable heart size. CONCLUSION: Early/mild right lower lobe pneumonia. Ramirez Colbert MD on November 29, 2017 at 3:03 Board Certified Radiologist. This report was verified electronically.
[2017-11-29] MEDS ORDERED: cefTRIAXone INJ 1,000 MG in SODIUM CHLORIDE 0.9% INJ 100 ML IV ONE (03:15)
[2017-11-29] MEDS ORDERED: AZITHROMYCIN 250 MG TAB PO ONE (03:15)
--- NOTE | 2017-11-29 03:20 | PD ---
HPI Chief Complaint: Cold / Flu Symptoms Time Seen by Provider: 02:44 Travel History International Travel<30 days: No Contact w/Intl Traveler<30days: No Traveled to known affect area: No History of Present Illness HPI 62-year-old white male with a history of A. fib and hypercholesterolemia under the care of Dr. Wilson presents emergency department with complaints of cough, congestion and sore throat for the past 2 days. Patient has had subjective fever and chills. Positive chest congestion with some slight sputum shortness of breath. Patient denies any persistent shortness of breath or wheezing. No nausea or vomiting. No abdominal pain or urinary symptoms. Patient states that he felt that he was in A. fib earlier this evening. PFSH Past Medical History Arthritis: No Asthma: No Atrial Fibrillation: Yes Autoimmune Disease: No Blood Disorders: No Anxiety: No Depression: No Heart Rhythm Problems: Yes (AFIB) Cancer: No Cardiovascular Problems: Yes High Cholesterol: No Chemotherapy: No Chest Pain: No Congestive Heart Failure: No COPD: No Cerebrovascular Accident: No Diabetes: No Diminished Hearing: No Endocrine: No Gastrointestinal Disorders: No GERD: Yes Glaucoma: No Genitourinary: No Headaches: No Hepatitis: No Hiatal Hernia: No Hypertension: Yes Immune Disorder: No Implanted Vascular Access Dvce: No Kidney Stones: No Musculoskeletal: Yes Neurologic: No Psychiatric: No Reproductive: No Respiratory: No Immunizations Current: Yes Myocardial Infarction: No Radiation Therapy: No Renal Failure: No Seizures: No Sickle Cell Disease: No Sleep Apnea: No Thyroid Disease: No Ulcer: No Tetanus Vaccination: Unknown Influenza Vaccination: Yes Past Surgical History Abdominal Surgery: No AICD: No Arteriovenous Shunt: No Cardiac Surgery: No Ear Surgery: No Endocrine Surgery: No Eye Surgery: No Genitourinary Surgery: No Gynecologic Surgery: No Insulin Pump: No Joint Replacement: No Neurologic Surgery: No Oral Surgery: No Pacemaker: No Thoracic Surgery: No Other Surgery: Yes (Appendectomy) Social History Alcohol Use: No Tobacco Use: No Substance Use: No Allergies-Medications (Allergen,Severity, Reaction): Coded Allergies: No Known Allergies (Verified Adverse Reaction, Unknown, 11/29/17) Reported Meds & Prescriptions Reported Meds & Active Scripts Active Zithromax (Azithromycin) 500 Mg Tab 500 Mg PO DAILY 7 Days Lipitor (Atorvastatin Calcium) 20 Mg Tab 40 Mg PO HS Reported Aspirin 325 Mg Tab 325 Mg PO DAILY Metoprolol Tartrate 25 Mg Tab 25 Mg PO BID Review of Systems Except as stated in HPI: all other systems reviewed are Neg Physical Exam Narrative GENERAL: Well-developed, well-nourished in no apparent distress. Nontoxic appearing. HEAD: Normocephalic, atraumatic. EYES: Pupils equal round and reactive. Extraocular motions intact. No scleral icterus. No injection or drainage. ENT: Nose clear. Throat without erythema, tonsillar hypertrophy or exudate. Uvula midline. Airway patent. NECK: Trachea midline. Supple, nontender, moves head freely. No central bony tenderness or spasm. CARDIOVASCULAR: Regular rate and rhythm without murmurs, gallops, or rubs. RESPIRATORY: Clear to auscultation. Breath sounds equal bilaterally. No wheezes , rales, or rhonchi. GASTROINTESTINAL: Abdomen soft, non-tender, nondistended. No hepato-splenomegaly , or palpable masses. No guarding. EXTREMITIES: No clubbing, cyanosis, or edema. No joint tenderness. BACK: Nontender without deformity. No flank tenderness. NEUROLOGICAL: Awake, alert and oriented x 3 .Cranial nerves grossly intact. Motor and sensory grossly within normal limits. Normal speech. Data Data Last Documented VS Vital Signs Date Time Temp Pulse Resp B/P (MAP) Pulse Ox O2 Delivery O2 Flow Rate FiO2 11/29/17 02:17 97 12 121/72 (88) 97 11/29/17 02:09 Room Air 11/29/17 00:30 98.3 Orders Orders Electrocardiogram (11/29/17 ) Chest, Pa & Lat (11/29/17 ) Influenzae A/B Antigen (11/29/17 02:38) Complete Blood Count With Diff (11/29/17 03:09) Basic Metabolic Panel (Bmp) (11/29/17 03:09) Iv Access Insert/Monitor (11/29/17 03:09) Ceftriaxone Inj (Rocephin Inj) (11/29/17 03:15) Azithromycin (Zithromax) (11/29/17 03:15) Ed Discharge Order (11/29/17 04:19) Labs Laboratory Tests Test 11/29/17 03:40 White Blood Count 8.7 TH/MM3 Red Blood Count 4.44 MIL/MM3 Hemoglobin 13.3 GM/DL Hematocrit 38.7 % Mean Corpuscular Volume 87.2 FL Mean Corpuscular Hemoglobin 29.9 PG Mean Corpuscular Hemoglobin Concent 34.3 % Red Cell Distribution Width 14.2 % Platelet Count 271 TH/MM3 Mean Platelet Volume 6.9 FL Neutrophils (%) (Auto) 70.3 % Lymphocytes (%) (Auto) 18.8 % Monocytes (%) (Auto) 7.9 % Eosinophils (%) (Auto) 2.6 % Basophils (%) (Auto) 0.4 % Neutrophils # (Auto) 6.1 TH/MM3 Lymphocytes # (Auto) 1.6 TH/MM3 Monocytes # (Auto) 0.7 TH/MM3 Eosinophils # (Auto) 0.2 TH/MM3 Basophils # (Auto) 0.0 TH/MM3 CBC Comment DIFF FINAL Differential Comment Blood Urea Nitrogen 16 MG/DL Creatinine 0.96 MG/DL Random Glucose 103 MG/DL Calcium Level 9.0 MG/DL Sodium Level 141 MEQ/L Potassium Level 4.1 MEQ/L Chloride Level 105 MEQ/L Carbon Dioxide Level 30.7 MEQ/L Anion Gap 5 MEQ/L Estimat Glomerular Filtration Rate 79 ML/MIN MDM Medical Decision Making Medical Screen Exam Complete: Yes Emergency Medical Condition: Yes Medical Record Reviewed: Yes Interpretation(s) Sinus rhythm with sinus arrhythmia with a ventricular rate of 70. Patient has diffuse ST depression consistent with ischemia. This is compared to EKGs in the past which is unchanged. I do not see any ST elevation. There is a incomplete right bundle branch block. Chest x-ray: Mild early right lower lobe infiltrate Influenza: Negative Last 24 hours Impressions Chest X-Ray 11/29/17 0000 Signed Impressions: Service Date/Time: Wednesday, November 29, 2017 02:50 - CONCLUSION: Early/mild right lower lobe pneumonia. Ramirez Colbert MD CBC & BMP Diagram 11/29/17 03:40 Calcium Level 9.0 Differential Diagnosis MDM: High Differential diagnoses: Pneumonia, bronchitis, URI, asthma, RAD, legionnaire's disease, SARS, ARDS, influenza, bronchiolitis, RSV,PE,CHF Narrative Course IV access is obtained. Routine laboratory tests including CBC, chemistry, chest x-ray and influenza have been sent. Patient's x-ray reveals a developing right lower lobe pneumonia. EKG shows a sinus rhythm with chronic ischemic changes. The patient is not having any acute chest pain at this time. He has taken his aspirin today. Patient was given Rocephin 1 g IV in Zithromax 500 mg p.o. So long as his laboratory tests are reasonable he will be discharged with close outpatient follow-up with pneumonia. This is right lower lobe pneumonia Diagnosis Primary Impression: Right lower lobe pneumonia Patient Instructions: General Instructions Additional Instructions: Rest. Increase fluids. Tylenol and Advil. Robitussin-DM. Zithromax. Followup with your Dr. in 2-3 days. Return to the ER for any problems. Med/Other Pt SpecificInfo: Prescription(s) given Scripts Azithromycin (Zithromax) 500 Mg Tab 500 MG PO DAILY for Infection for 7 Days, #7 TAB 0 Refills Prov: Ish Julio MD 11/29/17 Disposition: 01 DISCHARGE HOME Condition: Stable Michael Borjas Nov 29, 2017 03:20
[2017-11-29] MEDS ORDERED: ZITH500T PO (03:21)
[2017-11-29 03:48] LABS: AUTOMATED NEUTROPHIL # 6.1 TH/MM3 (1.8-7.7); BASOPHIL % 0.4 % (0.0-2.0); EOSINOPHIL # 0.2 TH/MM3 (0-0.4); EOSINOPHIL % 2.6 % (0.0-4.0); HEMATOCRIT 38.7 % (39.0-51.0); HEMOGLOBIN 13.3 GM/DL (13.0-17.0); LYMPH % 18.8 % (9.0-44.0); LYMPHOCYTE # 1.6 TH/MM3 (1.0-4.8); MEAN CELL VOLUME 87.2 FL (80.0-100.0); MEAN CORPUSCULAR HEMOGLOBIN 29.9 PG (27.0-34.0); MEAN CORPUSCULAR HGB CONC 34.3 % (32.0-36.0); MEAN PLATELET VOLUME 6.9 FL (7.0-11.0); MONO % 7.9 % (0.0-8.0); MONOCYTE # 0.7 TH/MM3 (0-0.9); NEUT % 70.3 % (16.0-70.0); PLATELET COUNT 271 TH/MM3 (150-450); RED BLOOD COUNT 4.44 MIL/MM3 (4.50-5.90); RED CELL DISTRIBUTION WIDTH 14.2 % (11.6-17.2); WHITE BLOOD COUNT 8.7 TH/MM3 (4.0-11.0)
[2017-11-29 04:15] LABS: BICARBONATE 30.7 MEQ/L (21.0-32.0); CREATININE 0.96 MG/DL (0.60-1.30)
--- NOTE | 2017-11-29 14:36 | EKG ---
Date Performed: 11/29/2017 Time Performed: 02:25:37 PTAGE: 62 years EKG: Sinus rhythm WITH SINUS ARRHYTHMIA POSSIBLE RIGHT VENTRICULAR CONDUCTION DELAY ST DEVIATION AND MODERATE T-WAVE A BNORMALITY, CONSIDER ANTEROLATERAL ISCHEMIA ABNORMAL ECG PREVIOUS TRACING : 01/04/2017 16.28 Since the prior tracing, there has been no significant kebede DOCTOR: Ingris Moses Interpretating Date/Time 11/29/2017 14:33:51
== END 2017-11-29 05:17 | disposition home or self-care (01) ==
LOC: NEPD 00:29
DX: J18.9 Pneumonia, unspecified organism (principal); I49.8 Other specified cardiac arrhythmias; R94.31 Abnormal electrocardiogram [ECG] [EKG]; I45.10 Unspecified right bundle-branch block; I48.91 Unspecified atrial fibrillation; E78.00 Pure hypercholesterolemia, unspecified; K21.9 Gastro-esophageal reflux disease without esophagitis; I10 Essential (primary) hypertension; Z79.82 Long term (current) use of aspirin
CPT/HCPCS: 71046; 80048; 85025; 87804; 93005; 96374; 99285; J0696